=== PATIENT | female | born 1940 | race African-American/Black ===

== ENCOUNTER → 2018-09-09 | Outpatient (CLI) | payer MEDICARE, MEDICAID ==
--- NOTE | 2018-09-09 10:34 | RADIOLOGY REPORT (SQ) ---
EXAM DESCRIPTION: KNEE RIGHT 2 VIEWS COMPLETED DATE/TIME: 09/09/2018 10:25 am REASON FOR STUDY: PAIN IN RT KNEE M25.561 PAIN IN RIGHT KNEE no known injury, chronic pain COMPARISON: None. NUMBER OF VIEWS: Two views. TECHNIQUE: AP and lateral radiographic images acquired of the right knee. LIMITATIONS: None. FINDINGS: MINERALIZATION: Osteopenic, age-appropriate BONES: No acute fracture or dislocation. No worrisome bone lesions. Bony spurring is present at the patellar tendon attachment to the patella. JOINT: No effusion. SOFT TISSUES: No soft tissue swelling. No radio-opaque foreign body. Atherosclerotic arterial vascu lar calcifications OTHER: No other significant finding. IMPRESSION: No acute fracture or malalignment. Calcific tendinopathy at the patellar tendon attachment to the inferior midline patella TECHNICAL DOCUMENTATION: JOB ID: [id number] [employer]- All Rights Reserved Reading location - IP/workstation name: [email or web address]
== END ==
LOC: OD 10:07
PROVIDERS: ATTEND Internal Medicine
DX: M25.561 Pain in right knee (principal)

== ENCOUNTER → 2018-09-27 | Outpatient (CLI) | payer MEDICARE, MEDICAID ==
--- NOTE | 2018-09-27 13:55 | RADIOLOGY REPORT (SQ) ---
EXAM DESCRIPTION: CHEST PA/LATERAL COMPLETED DATE/TIME: 09/27/2018 1:43 pm REASON FOR STUDY: PRE-OP COMPARISON: None. EXAM PARAMETERS: NUMBER OF VIEWS: two views TECHNIQUE: Digital Frontal and Lateral radiographic views of the chest acquired. RADIATION DOSE: NA LIMITATIONS: none FINDINGS: LUNGS AND PLEURA: No opacities, masses or pneumothorax. No pleural effusion. MEDIASTINUM AND HILAR STRUCTURES: No masses or contour abnormalities. HEART AND VASCULAR STRUCTURES: Heart normal size. No evidence for failure. BONES: No acute findings. HARDWARE: Old sternotomy for CABG. Lower cervical fusion, lumbar fusion hardware OTHER: No other significant finding. IMPRESSION: NO SIGNIFICANT RADIOGRAPHIC FINDING IN THE CHEST. TECHNICAL DOCUMENTATION: JOB ID: [id number] [employer]- All Rights Reserved Reading location - IP/workstation name: [email or web address]
[2018-09-27 13:58] LABS: ABSOLUTE EOSINOPHILS # (AUTO) 0.1 10^3/uL (0.0-0.6); ABSOLUTE LYMPHOCYTES (AUTO) 2.4 10^3/uL (0.5-4.7); ABSOLUTE MONOCYTES (AUTO) 0.4 10^3/uL (0.1-1.4); ABSOLUTE NEUT (AUTO) 2.4 10^3/uL (1.7-8.2); BASOPHILS % (AUTO) 0.6 % (0-2); EOSINOPHILS % (AUTO) 2.3 % (0-6); HEMOGLOBIN 12.2 g/dL (12.0-15.5); LYMPHOCYTES % (AUTO) 45.2 % (13-45); MEAN CORPUSCULAR HEMOGLOBIN 27.3 pg (27.0-33.4); MEAN CORPUSCULAR VOLUME 83 fl (80-97); MONOCYTES % (AUTO) 6.7 % (3-13); PLATELET COUNT 223 10^3/uL (150-450); RED BLOOD COUNT 4.48 10^6/uL (3.72-5.28); RED CELL DISTRIBUTION WIDTH 15.6 % (11.5-14.0); SEGMENTED NEUTROPHILS % (AUTO) 45.2 % (42-78); TOTAL CELLS COUNTED % (AUTO) 100 %; WHITE BLOOD COUNT 5.4 10^3/uL (4.0-10.5)
[2018-09-27 14:26] LABS: ANION GAP 9 (5-19); BLOOD UREA NITROGEN 11 mg/dL (7-20); CALCIUM 9.9 mg/dL (8.4-10.2); CARBON DIOXIDE 28 mmol/L (22-30); CHLORIDE 104 mmol/L (98-107); GLUCOSE 120 mg/dL (75-110); POTASSIUM 4.5 mmol/L (3.6-5.0); SODIUM 140.7 mmol/L (137-145)
--- NOTE | 2018-09-27 22:58 | EKG REPORT ---
SEVERITY:- ABNORMAL ECG - SINUS RHYTHM ABERRANT COMPLEX, POSSIBLY SUPRAVENTRICULAR BIATRIAL ABNORMALITIES LOW VOLTAGE THROUGHOUT : Confirmed by: Nemo Bolivar MD 27-Sep-2018 22:58:10
== END ==
LOC: OD 13:08
PROVIDERS: ATTEND Orthopaedic Surgery
DX: Z01.810 Encounter for preprocedural cardiovascular examination (principal); Z01.812 Encounter for preprocedural laboratory examination; Z01.818 Encounter for other preprocedural examination; Z95.1 Presence of aortocoronary bypass graft
CPT/HCPCS: 36415; 71046; 80048; 85025; 93005; 93010

== ENCOUNTER 2018-10-14 10:00 | Inpatient (IN) | payer MEDICARE, MEDICAID ==
[~2018-10-14 10:00] MED LIST: BUPIVACAINE INJ/PF LIPOSOME/PF 266 MG/20 ML SDV INJ PRN; CEFAZOLIN INJ 1 GM VIAL IV PRN; IBUPROFEN 800 MG in NORMAL SALINE 250 ML IV PRN; LACTATED RINGERS 1000 ML IV PRN; LANSOPRAZOLE 15 MG TAB.RAP.DR PO PRN; LIDOCAINE 0.5% INJ-PF (5 MG/ML) 50 ML SDV SUBCUT PRN; OXYCODONE HCL SR 10 MG TABLET PO PRN; VANCOMYCIN HCL 1,000 MG in DEXTROSE 5%-WATER 250 ML IV PRN
[2018-10-14] MEDS ORDERED: LANSOPRAZOLE 15 MG TAB.RAP.DR ONE (11:41)
[2018-10-14] MEDS ORDERED: CEFAZOLIN INJ 1 GM VIAL ONE (11:42)
[2018-10-14] MEDS ORDERED: OXYCODONE HCL SR 10 MG TABLET PO ONE (11:42)
[2018-10-14] MEDS ORDERED: BUPIVACAINE HCL/DEX-WATER/PF 15 MG/2 ML AMPULE ONE (12:11)
[2018-10-14] MEDS ORDERED: PROMETHAZINE HCL INJ 25 MG/1 ML VIAL ONE (12:14)
[2018-10-14] MEDS ORDERED: LIDOCAINE 2% INJ-PF (20 MG/ML) 10 ML AMPUL ONE (12:14)
[2018-10-14] MEDS ORDERED: MIDAZOLAM 2 MG/2 ML INJ ONE (12:14)
[2018-10-14] MEDS ORDERED: FENTANYL CITRATE INJ/PF 100 MCG/2 ML AMPUL ONE (12:14)
[2018-10-14] MEDS ORDERED: ACETAMINOPHEN 1,000 MG/100 ML RTUPB IV ONE (12:15)
[2018-10-14] MEDS ORDERED: ONDANSETRON HCL INJ/PF 4 MG/2 ML SDV ONE (12:15)
[2018-10-14] MEDS ORDERED: TRANEXAMIC ACID INJ/PF 1,000 MG/10 ML SDV IV ONE ×3 (12:15→17:00)
[2018-10-14] MEDS ORDERED: EPHEDRINE SULFATE INJ 50 MG/1 ML AMPULE ONE (12:15)
[2018-10-14] MEDS ORDERED: PROPOFOL INJ 200 MG/20 ML VIAL IV ONE (12:15)
[2018-10-14] MEDS ORDERED: BACITRACIN INJ 50,000 UNIT VIAL ONE (12:18)
[2018-10-14] MEDS ORDERED: BUPIVACAINE HCL 0.5%-EPI 1:200000 INJ/PF 30 ML VIAL ONE (12:18)
[2018-10-14] MEDS ORDERED: MEPERIDINE HCL/PF INJ 25 MG/1 ML DISP.SYRIN IV PRN (14:02)
[2018-10-14] MEDS ORDERED: MORPHINE SULFATE 10 MG/ML INJ IV PRN ×5 (14:02→15:07)
[2018-10-14] MEDS ORDERED: PROMETHAZINE HCL INJ 25 MG/1 ML VIAL IV PRN ×2 (14:02)
[2018-10-14] MEDS ORDERED: DIPHENHYDRAMINE HCL 50 MG/ML VIAL IV PRN ×2 (14:02→15:07)
[2018-10-14] MEDS ORDERED: FENTANYL CITRATE INJ/PF 100 MCG/2 ML AMPUL IV PRN ×3 (14:02)
[2018-10-14] MEDS ORDERED: LABETALOL HCL INJ 20 MG/4 ML DISP.SYRIN IV ONE (14:15)
[2018-10-14] MEDS ORDERED: SUCCINYLCHOLINE CHLORIDE INJ 200 MG/10 ML VIAL ONE (14:38)
[2018-10-14] MEDS ORDERED: MAG HYDROX/AL HYDROX/SIMETH SUSP 30 ML UDCUP PO PRN (15:07)
[2018-10-14] MEDS ORDERED: ONDANSETRON 4 MG TAB.RAPDIS PO PRN (15:07)
[2018-10-14] MEDS ORDERED: RINGERS SOLUTION,LACTATED 1,000 ML IV PRN (15:07)
[2018-10-14] MEDS ORDERED: ONDANSETRON HCL INJ/PF 4 MG/2 ML SDV IV PRN (15:07)
[2018-10-14] MEDS ORDERED: ZOLPIDEM TARTRATE 5 MG TABLET PO PRN (15:07)
--- NOTE | 2018-10-14 15:17 | Operative Report ---
Operative Report DATE OF SURGERY: 10/14/18 PREOPERATIVE DIAGNOSIS: Chronic right prosthetic hip instability OPERATION: Sciatic neuro lysis. Right revision hip arthroplasty SURGEON: MOI HUBBARD ANESTHESIA: GA TISSUE REMOVED OR ALTERED: Cultures x2 to microbiology. Implants to CSS ESTIMATED BLOOD LOSS: 250 PROCEDURE: With the patient in a left lateral decubitus positioning on the operating table the right lower extremity hindquarter prepped and draped in a sterile fashion. A posterior approach the hip was taken in line with the previous surgical incision. Upon entering the hip capsule cultures sent for culture and sensitivity x2. The sciatic nerve is now identified coming out of the sciatic notch and was traced down to the gluteal sling. Is protected throughout this course for the remainder of the case. The hip was easily dislocated even during prepping of the case. Upon examination of the situation directly is notable that the 26 mm Vitallium head w as intact. There was a high wall polyethylene liner with its apex at approximately 10:00 on the face of the dial the high wall was almost completely eroded by recurrent dislocations. The femoral neck was retroverted and the cup was at best neutral. 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 In light of the stem version this was going to need to be changed to enable hip stability. The fact that a high wall liner had been used and failed may be less inclined to consider this as an option using the existing acetabular shell. Therefore decision was made to remove both the stem and the shell at this point. The existing cerclage cable was cut and removed. Using flexible osteotomes the femoral stem is loose and then removed with minimal bone loss. The acetabular liner was removed and the underlying cup was noted to be a Howmedica 56 mm implant. Its removed using acetabular nice with essentially no bone loss. The wound is irrigated. The acetabulum prepared using a series of a 56 and subsequently 57 mm hemispherical reamer. Subsequently a Jose Alfredo hemispherical revision cup was impacted into position. There is little bone proximally to secure the acetabular shell although it is quite stable without screws. Screws were subsequently placed down into the ischium and into the superior pubic ramus. The cup itself is very stable to manual testing with a Tracie clamp. A trial liner was placed and attention was now turned back to the femur. The femur was prepared for a Jose Alfredo modular yazdanism stem using conical reamers until a 18 mm reamer is seated. Subsequently the base for the modular revision stem is impacted into position. The proximal femur was prepared and a 25 mm standard body is trial was placed onto the stem. The hip was reducible with a -4x36 mm chrome cobalt head and there seems to be excellent both anterior and posterior stability. The hip is dislocated. Trial implants were removed. The final proximal body is impacted onto the trunnion and secured with a torque wrench. The 36 mm chrome cobalt head -4 neck is impacted onto the trunnion. A 36 mm flat cross-link polyethylene liner was impacted into the acetabular shell. At this point the hip was reduced. A cerclage cables placed around the greater trochanter. The wound was then irrigated and closed in layers interrupted Vicryl followed by s taples. A sterile compressive dressing and abduction pillow were applied and the patient's return to the PACU in satisfactory condition.
--- NOTE | 2018-10-14 16:20 | RADIOLOGY REPORT (SQ) ---
EXAM DESCRIPTION: PELVIS AP COMPLETED DATE/TIME: 10/14/2018 4:10 pm REASON FOR STUDY: Post Op Long Cassette in PACU Z96.649 PRESENCE OF UNSPECIFIED ARTIFICIAL HIP JOSÉ LUIS NT COMPARISON: None. NUMBER OF VIEWS: One view TECHNIQUE: AP Pelvis LIMITATIONS: None. FINDINGS: Postoperative images show or a right hip arthroplasty in good position. Cannot entirely e xclude a fracture seen en face extending inferior from the tip of the medullary component. IMPRESSION: Right hip arthroplasty. Findings as described. COMMENT: Pelvic fractures are often occult on plain radiographs. If strong clinical suspicion for f racture, recommend CT or MR. TECHNICAL DOCUMENTATION: JOB ID: [id number] [employer]- All Rights Reserved Reading location - IP/workstation name: [email or web address]
[2018-10-14] MEDS ORDERED: INSULIN LISPRO 100 UNIT/ML 3 ML VIAL SUBCUT PRN (16:30)
[2018-10-14] MEDS ORDERED: DEXTROSE 50%-WATER SYRINGE 12.5 GM/25 ML DOSE IV PRN (16:30)
[2018-10-14] MEDS ORDERED: DEXTROSE 40% GEL 15 GM TUBE X 2 PO PRN (16:30)
[2018-10-14] MEDS ORDERED: DEXTROSE 40% GEL 15 GM TUBE PO PRN (16:30)
[2018-10-14] MEDS ORDERED: DEXTROSE 50%-WATER SYRINGE 25 GM/50 ML DOSE IV PRN (16:30)
[2018-10-14] MEDS ORDERED: GLUCAGON,HUMAN RECOMB 1 MG INJ IM PRN (16:30)
[2018-10-14] MEDS ORDERED: (PENDING PHARMACY ID) (Metformin Hcl [Metformin Hcl] 1,000 MG) PO SCH (18:00)
[2018-10-14] MEDS: METOPROLOL SUCCINATE 50 MG TAB.SR.24H PO SCH (18:53)
[2018-10-14] MEDS: METFORMIN HCL 500 MG TABLET PO SCH (19:34)
[2018-10-14] MEDS: SENNOSIDES/DOCUSATE 8.6-50 MG 1 EACH TABLET PO SCH (19:34)
[2018-10-14] MEDS: IBUPROFEN 800 MG in NORMAL SALINE 250 ML IV SCH (21:45)
[2018-10-14] MEDS: OXYCODONE HCL SR 10 MG TABLET PO SCH (21:46)
[2018-10-14] MEDS: BIMATOPROST 0.01% OPH SOLN 2.5 ML/BOTTLE OU SCH (21:49)
[2018-10-15] MEDS ORDERED: VANCOMYCIN HCL 1,000 MG in DEXTROSE 5%-WATER 250 ML IV ONE (03:00)
[2018-10-15] MEDS: IBUPROFEN 800 MG in NORMAL SALINE 250 ML IV SCH ×3 (05:30→21:22)
--- NOTE | 2018-10-15 07:20 | PDOC PROGRESS REPORT ---
Subjective Progress Note for:: 10/15/18 Reason For Visit: RIGHT PROSTHETIC HIP INSTABILITY 77-year-old black female postop day 1 status post right hip revision arthroplasty for prosthetic instability. No events last night. Physical Exam Vital Signs: Temp Pulse Resp BP Pulse Ox 36.8 C 83 15 114/65 97 10/14/18 23:00 10/14/18 23:00 10/14/18 23:00 10/14/18 23:00 10/14/18 23:00 Intake & Output 10/14/18 10/15/18 10/16/18 06:59 06:59 06:59 Intake Total 6050 Output Total 4950 Balance 1100 Weight 72.1 kg Physical Exam: Elderly black female lying in a hospital bed in no acute distress. General appearance: PRESENT: no acute distress Head exam: PRESENT: normocephalic Respiratory exam: PRESENT: unlabored Cardiovascular exam: PRESENT: RRR Pulses: PRESENT: +1 pedal pulses bilateral Vascular exam: PRESENT: normal capillary refill GI/Abdominal exam: PRESENT: soft Rectal exam: PRESENT: deferred Extremities exam: PRESENT: other - Right hip dressing with some drainage. This will be changed by nursing. Leg lengths are equal. Distal neurovascular examination is intact. Neurological exam: PRESENT: alert, awake, oriented to person, oriented to place, oriented to time, oriented to situation. ABSENT: motor sensory deficit Psychiatric exam: PRESENT: appropriate affect, normal mood. ABSENT: homicidal i deation, suicidal ideation Skin exam: PRESENT: dry, intact, warm. ABSENT: cyanosis, rash Results Laboratory Results: 10/14/18 12:18 Blood Type O POSITIVE Antibody Screen NEGATIVE Impressions: Pelvis X-Ray 10/14/18 15:09 IMPRESSION: Right hip arthroplasty. Findings as described. Status: Imported from PACS Assessment & Plan - Diagnosis (1) Dislocation of hip joint prosthesis Qualifiers: Encounter type: initial encounter Qualified Code(s): T84.029A - Dislocation of unspecified internal joint prosthesis, initial encounter; Z96.649 - Presence of unspecified artificial hip joint Is this a current diagnosis for this admission?: Yes Plan: Patient to be mobilized with physical therapy and weightbearing as tolerated basis - Time Time Spent with patient: 15-24 minutes Anticipated discharge: SNF Within: when bed available
[2018-10-15 07:29] LABS: HEMATOCRIT 24.6 % (36.0-47.0); MEAN CORPUSCULAR HEMOGLOBIN 27.4 pg (27.0-33.4); MEAN CORPUSCULAR HGB CONC 32.7 g/dL (32.0-36.0); MEAN CORPUSCULAR VOLUME 84 fl (80-97); PLATELET COUNT 156 10^3/uL (150-450); RED BLOOD COUNT 2.93 10^6/uL (3.72-5.28); RED CELL DISTRIBUTION WIDTH 15.6 % (11.5-14.0); WHITE BLOOD COUNT 11.2 10^3/uL (4.0-10.5)
[2018-10-15 07:51] LABS: ANION GAP 7 (5-19); BLOOD UREA NITROGEN 18 mg/dL (7-20); CALCIUM 8.4 mg/dL (8.4-10.2); CARBON DIOXIDE 24 mmol/L (22-30); CHLORIDE 106 mmol/L (98-107); GLUCOSE 182 mg/dL (75-110); POTASSIUM 4.7 mmol/L (3.6-5.0); SODIUM 137.1 mmol/L (137-145)
[2018-10-15] MEDS: LISINOPRIL 10 MG TABLET PO SCH (09:34)
[2018-10-15] MEDS: ASPIRIN 325 MG TABLET PO SCH (09:39)
[2018-10-15] MEDS: METOPROLOL SUCCINATE 50 MG TAB.SR.24H PO SCH ×2 (09:40→17:25)
[2018-10-15] MEDS: ATORVASTATIN CALCIUM 40 MG TABLET PO SCH (09:40)
[2018-10-15] MEDS: SITAGLIPTIN PHOSPHATE 50 MG TABLET PO SCH (09:40)
[2018-10-15] MEDS: METFORMIN HCL 500 MG TABLET PO SCH ×2 (09:40→16:30)
[2018-10-15] MEDS: SENNOSIDES/DOCUSATE 8.6-50 MG 1 EACH TABLET PO SCH ×2 (09:40→18:11)
[2018-10-15] MEDS: PRENATAL VITAMIN W DHA CAPSULE PO SCH (11:18)
[2018-10-15] MEDS: OXYCODONE HCL SR 10 MG TABLET PO SCH ×2 (11:19→21:23)
[2018-10-15] MEDS: OXYCODONE HCL IR 5 MG TABLET PO PRN (16:30)
[2018-10-15] MEDS: LANSOPRAZOLE 30 MG TAB.RAP.DR PO SCH (21:18)
[2018-10-15] MEDS: BIMATOPROST 0.01% OPH SOLN 2.5 ML/BOTTLE OU SCH (21:25)
[2018-10-16] MEDS: LANSOPRAZOLE 30 MG TAB.RAP.DR PO SCH (05:32)
[2018-10-16] MEDS: IBUPROFEN 800 MG in NORMAL SALINE 250 ML IV SCH ×2 (05:32→14:28)
[2018-10-16 07:11] LABS: HEMATOCRIT 20.4 % (36.0-47.0); MEAN CORPUSCULAR HEMOGLOBIN 27.8 pg (27.0-33.4); MEAN CORPUSCULAR HGB CONC 33.6 g/dL (32.0-36.0); MEAN CORPUSCULAR VOLUME 83 fl (80-97); PLATELET COUNT 129 10^3/uL (150-450); RED BLOOD COUNT 2.47 10^6/uL (3.72-5.28); RED CELL DISTRIBUTION WIDTH 15.5 % (11.5-14.0); WHITE BLOOD COUNT 8.6 10^3/uL (4.0-10.5)
[2018-10-16 07:27] LABS: HEMOGLOBIN 6.9 g/dL (12.0-15.5)
[2018-10-16] MEDS: METOPROLOL SUCCINATE 50 MG TAB.SR.24H PO SCH ×2 (09:00→17:28)
[2018-10-16] MEDS: LISINOPRIL 10 MG TABLET PO SCH (09:00)
[2018-10-16] MEDS: ATORVASTATIN CALCIUM 40 MG TABLET PO SCH (09:07)
[2018-10-16] MEDS: ASPIRIN 325 MG TABLET PO SCH (09:07)
[2018-10-16] MEDS: PRENATAL VITAMIN W DHA CAPSULE PO SCH (09:07)
[2018-10-16] MEDS: METFORMIN HCL 500 MG TABLET PO SCH ×2 (09:07→17:30)
[2018-10-16] MEDS: SITAGLIPTIN PHOSPHATE 50 MG TABLET PO SCH (09:07)
[2018-10-16] MEDS: OXYCODONE HCL SR 10 MG TABLET PO SCH (09:08)
[2018-10-16] MEDS: SENNOSIDES/DOCUSATE 8.6-50 MG 1 EACH TABLET PO SCH ×2 (09:08→17:30)
[2018-10-16] MEDS: BIMATOPROST 0.01% OPH SOLN 2.5 ML/BOTTLE OU SCH (23:04)
[2018-10-17] MEDS: LANSOPRAZOLE 30 MG TAB.RAP.DR PO SCH (06:14)
[2018-10-17] MEDS: ACETAMINOPHEN 325 MG TABLET PO PRN (06:40)
--- NOTE | 2018-10-17 06:59 | PDOC PROGRESS REPORT ---
Subjective Progress Note for:: 10/17/18 Reason For Visit: RIGHT PROSTHETIC HIP INSTABILITY 77-year-old black female now postop day 3 status post right hip revision arthroplasty for prosthetic instability. Patient with no complaints today. Question this morning is "when can I go home?" Low-grade fever last night to 38 .2 C. Posttransfusion hematocrit pending. Physical Exam Vital Signs: Temp Pulse Resp BP Pulse Ox 38.2 C H 102 H 16 126/63 H 98 10/17/18 03:17 10/17/18 03:17 10/17/18 03:17 10/17/18 03:17 10/17/18 03:17 Intake & Output 10/15/18 10/16/18 10/17/18 06:59 06:59 06:59 Intake Total 6050 2472 1945 Output Total 4950 Balance 1100 2472 1945 Weight 72.1 kg 84.7 kg 87 kg General appearance: PRESENT: no acute distress Head exam: PRESENT: normocephalic Respiratory exam: PRESENT: unlabored Cardiovascular exam: PRESENT: RRR Pulses: PRESENT: +1 pedal pulses bilateral Vascular exam: PRESENT: normal capillary refill GI/Abdominal exam: PRESENT: soft Rectal exam: PRESENT: deferred Extremities exam: PRESENT: other - Right hip dressing clean dry and intact. Leg lengths are equal. Distal neurovascular examination is intact. Neurological exam: PRESENT: alert, awake, oriented to person, oriented to place, oriented to time, oriented to situation. ABSENT: motor sensory deficit Psychiatric exam: PRESENT: appropriate affect, normal mood. ABSENT: homicidal ideation, suicidal ideation Skin exam: PRESENT: dry, intact, warm. ABSENT: cyanosis, rash Results Laboratory Results: 10/16/18 06:18 10/15/18 06:14 10/14/18 10/16/18 12:18 06:18 WBC 8.6 RBC 2.47 L Hgb 6.9 L Hct 20.4 L MCV 83 MCH 27.8 MCHC 33.6 RDW 15.5 H Plt Count 129 L Blood Type O POSITIVE Antibody Screen NEGATIVE Impressions: Pelvis X-Ray 10/14/18 15:09 IMPRESSION: Right hip arthroplasty. Findings as described. Status: Imported from PACS Assessment & Plan - Diagnosis (1) Dislocation of hip joint prosthesis Qualifiers: Encounter type: initial encounter Qualified Code(s): T84.029A - Dislocation of unspecified internal joint prosthesis, initial encounter; Z96.649 - Presence of unspecified artificial hip joint Is this a current diagnosis for this admission?: Yes Plan: Patient can continue to be mobilized with physical therapy and weightbearing as tolerated basis. Continue to observe for low-grade fever. Anticipate potential discharge home tomorrow with home health services and DME. (2) Postoperative anemia due to acute blood loss Is this a current diagnosis for this admission?: Yes Plan: Patient had hematocrit yesterday of 20%. She received 2 units of packed red blood cells. Posttransfusion hematocrits pending. - Time Time Spent with patient: 15-24 minutes Anticipated discharge: Home with Homehealth Within: within 24 hours
[2018-10-17 08:49] LABS: HEMATOCRIT 26.1 % (36.0-47.0); HEMOGLOBIN 8.7 g/dL (12.0-15.5); MEAN CORPUSCULAR HEMOGLOBIN 28.2 pg (27.0-33.4); MEAN CORPUSCULAR HGB CONC 33.3 g/dL (32.0-36.0); MEAN CORPUSCULAR VOLUME 85 fl (80-97); PLATELET COUNT 134 10^3/uL (150-450); RED BLOOD COUNT 3.09 10^6/uL (3.72-5.28); RED CELL DISTRIBUTION WIDTH 15.5 % (11.5-14.0); WHITE BLOOD COUNT 9.8 10^3/uL (4.0-10.5)
[2018-10-17] MEDS: METFORMIN HCL 500 MG TABLET PO SCH ×2 (09:01→17:26)
[2018-10-17] MEDS: SITAGLIPTIN PHOSPHATE 50 MG TABLET PO SCH (09:01)
[2018-10-17] MEDS: ATORVASTATIN CALCIUM 40 MG TABLET PO SCH (09:01)
[2018-10-17] MEDS: ASPIRIN 325 MG TABLET PO SCH (09:01)
[2018-10-17] MEDS: LISINOPRIL 10 MG TABLET PO SCH (09:02)
[2018-10-17] MEDS: METOPROLOL SUCCINATE 50 MG TAB.SR.24H PO SCH ×2 (09:02→17:26)
[2018-10-17] MEDS: SENNOSIDES/DOCUSATE 8.6-50 MG 1 EACH TABLET PO SCH ×2 (09:02→17:26)
[2018-10-17] MEDS: PRENATAL VITAMIN W DHA CAPSULE PO SCH (14:03)
[2018-10-17] MEDS ORDERED: MAGNESIUM HYDROXIDE SUSP 30 ML UDCUP ONE (17:23)
[2018-10-17] MEDS: MAGNESIUM HYDROXIDE SUSP 30 ML UDCUP PO PRN (18:51)
[2018-10-17] MEDS: BIMATOPROST 0.01% OPH SOLN 2.5 ML/BOTTLE OU SCH (22:37)
[2018-10-18] MEDS: ACETAMINOPHEN 325 MG TABLET PO PRN (01:12)
[2018-10-18] MEDS: OXYCODONE HCL IR 5 MG TABLET PO PRN (01:12)
[2018-10-18] MEDS: LANSOPRAZOLE 30 MG TAB.RAP.DR PO SCH (05:55)
--- NOTE | 2018-10-18 08:47 | PDOC PROGRESS REPORT ---
Subjective Progress Note for:: 10/18/18 Reason For Visit: RIGHT PROSTHETIC HIP INSTABILITY 77-year-old black female status post right hip revision arthroplasty, postop day 4. Patient with limited if any participation with physical therapy yesterday. T-max 38.1 last night. Hematocrit is 26.1%. Intraoperative cultures are no growth so far. Physical Exam Vital Signs: Temp Pulse Resp BP Pulse Ox 37.2 C 82 17 111/50 L 99 10/18/18 07:41 10/18/18 07:41 10/18/18 07:41 10/18/18 07:41 10/18/18 07:41 Intake & Output 10/17/18 10/18/18 10/19/18 06:59 06:59 06:59 Intake Total 1944 740 Balance 19440 Weight 87 kg 80.8 kg General appearance: PRESENT: no acute distress Head exam: PRESENT: normocephalic Respiratory exam: PRESENT: unlabored Cardiovascular exam: PRESENT: RRR Pulses: PRESENT: +1 pedal pulses bilateral Vascular exam: PRESENT: normal capillary refill Extremities exam: PRESENT: other - Right hip dressing clean dry and intact. Leg lengths are equal. Distal neurovascular examination is intact. Neurological exam: PRESENT: alert, awake, oriented to person, oriented to place, oriented to time, oriented to situation. ABSENT: motor sensory deficit Psychiatric exam: PRESENT: appropriate affect, normal mood. ABSENT: homicidal ideation, suicidal ideation Skin exam: PRESENT: dry, intact, warm. ABSENT: cyanosis, rash Results Laboratory Results: 10/17/18 07:30 10/15/18 06:14 10/17/18 07:30 WBC 9.8 RBC 3.09 L Hgb 8.7 L Hct 26.1 L MCV 85 MCH 28.2 MCHC 33.3 RDW 15.5 H Plt Count 134 L 10/14/18 13:30 Hip - Right Gram Stain - Final 10/14/18 13:30 Hip - Right Wound Culture - Final NO AEROBIC OR ANAEROBIC ORGANISMS RECOVERED 10/14/18 13:30 Hip - Right Gram Stain - Final 10/14/18 13:30 Hip - Right Wound Culture - Final NO AEROBIC OR ANAEROBIC ORGANISMS RECOVERED Impressions: Pelvis X-Ray 10/14/18 15:09 IMPRESSION: Right hip arthroplasty. Findings as described. Status: Imported from PACS Assessment & Plan - Diagnosis (1) Dislocation of hip joint prosthesis Qualifiers: Encounter type: initial encounter Qualified Code(s): T84.029A - Dislocation of unspecified internal joint prosthesis, initial encounter; Z96.649 - Presence of unspecified artificial hip joint Is this a current diagnosis for this admission?: Yes Plan: That is post revision arthroplasty. Mobilize with physical therapy and weightbearing as tolerated basis. At this point the patient does not have the functional capacity to consider discharge home. I that she is going to have to increase her efforts at physical therapy will be resigned to a long-term facility placement. (2) Postoperative anemia due to acute blood loss Is this a current diagnosis for this admission?: Yes Plan: Stable - Time Time Spent with patient: 15-24 minutes Anticipated discharge: SNF Within: when bed available
[2018-10-18] MEDS: METOPROLOL SUCCINATE 50 MG TAB.SR.24H PO SCH ×2 (09:34→18:11)
[2018-10-18] MEDS: PRENATAL VITAMIN W DHA CAPSULE PO SCH (09:34)
[2018-10-18] MEDS: SITAGLIPTIN PHOSPHATE 50 MG TABLET PO SCH (09:34)
[2018-10-18] MEDS: SENNOSIDES/DOCUSATE 8.6-50 MG 1 EACH TABLET PO SCH ×2 (09:34→18:10)
[2018-10-18] MEDS: METFORMIN HCL 500 MG TABLET PO SCH ×2 (09:34→18:10)
[2018-10-18] MEDS: LISINOPRIL 10 MG TABLET PO SCH (09:34)
[2018-10-18] MEDS: ATORVASTATIN CALCIUM 40 MG TABLET PO SCH (09:34)
[2018-10-18] MEDS: ASPIRIN 325 MG TABLET PO SCH (09:34)
[2018-10-18] MEDS: MAGNESIUM HYDROXIDE SUSP 30 ML UDCUP PO PRN (20:53)
[2018-10-18] MEDS: BIMATOPROST 0.01% OPH SOLN 2.5 ML/BOTTLE OU SCH (22:42)
[2018-10-19] MEDS: OXYCODONE HCL IR 5 MG TABLET PO PRN ×2 (01:43→23:14)
[2018-10-19] MEDS: LANSOPRAZOLE 30 MG TAB.RAP.DR PO SCH (06:56)
[2018-10-19] MEDS: ASPIRIN 325 MG TABLET PO SCH (09:13)
[2018-10-19] MEDS: ATORVASTATIN CALCIUM 40 MG TABLET PO SCH (09:13)
[2018-10-19] MEDS: METOPROLOL SUCCINATE 50 MG TAB.SR.24H PO SCH ×2 (09:13→17:17)
[2018-10-19] MEDS: METFORMIN HCL 500 MG TABLET PO SCH ×2 (09:13→17:17)
[2018-10-19] MEDS: SENNOSIDES/DOCUSATE 8.6-50 MG 1 EACH TABLET PO SCH ×2 (09:13→17:17)
[2018-10-19] MEDS: LISINOPRIL 10 MG TABLET PO SCH (09:13)
[2018-10-19] MEDS: SITAGLIPTIN PHOSPHATE 50 MG TABLET PO SCH (09:13)
[2018-10-19] MEDS: PRENATAL VITAMIN W DHA CAPSULE PO SCH (09:14)
[2018-10-19] MEDS: BIMATOPROST 0.01% OPH SOLN 2.5 ML/BOTTLE OU SCH (22:11)
[2018-10-20] MEDS: LANSOPRAZOLE 30 MG TAB.RAP.DR PO SCH (06:47)
[2018-10-20] MEDS: ATORVASTATIN CALCIUM 40 MG TABLET PO SCH (08:44)
[2018-10-20] MEDS: METOPROLOL SUCCINATE 50 MG TAB.SR.24H PO SCH ×2 (08:44→17:43)
[2018-10-20] MEDS: LISINOPRIL 10 MG TABLET PO SCH (08:44)
[2018-10-20] MEDS: PRENATAL VITAMIN W DHA CAPSULE PO SCH (08:45)
[2018-10-20] MEDS: SITAGLIPTIN PHOSPHATE 50 MG TABLET PO SCH (08:45)
[2018-10-20] MEDS: SENNOSIDES/DOCUSATE 8.6-50 MG 1 EACH TABLET PO SCH ×2 (08:45→17:44)
[2018-10-20] MEDS: METFORMIN HCL 500 MG TABLET PO SCH ×2 (08:45→17:43)
[2018-10-20] MEDS: ASPIRIN 325 MG TABLET PO SCH (08:45)
--- NOTE | 2018-10-20 15:05 | PDOC PROGRESS REPORT ---
Subjective Progress Note for:: 10/19/18 Subjective:: Patient wanting to go home. Has participated better with therapy. No issues overnight Reason For Visit: RIGHT PROSTHETIC HIP INSTABILITY Physical Exam Vital Signs: Temp Pulse Resp BP Pulse Ox 37.9 C 86 16 118/56 L 99 10/18/18 23:04 10/18/18 23:04 10/18/18 23:04 10/18/18 23:04 10/18/18 23:04 Intake & Output 10/18/18 10/19/18 10/20/18 06:59 06:59 06:59 Intake Total 740 2980 Balance 740 2980 Weight 80.8 kg 80.8 kg Adult Front & Back Image: 1 - Dressing is dry clean and intact. Limb lengths are grossly equal. Neurovascular intact distally Results Laboratory Results: 10/17/18 07:30 10/15/18 06:14 Impressions: Pelvis X-Ray 10/14/18 15:09 IMPRESSION: Right hip arthroplasty. Findings as described. Assessment & Plan - Plan Summary Plan Summary: 77-year-old female status post revision right hip. Continue physical therapy. Likely will be discharged on Sunday.
--- NOTE | 2018-10-20 15:08 | PDOC PROGRESS REPORT ---
Subjective Progress Note for:: 10/20/18 Subjective:: Patient is ambulating very well and walked 100 feet. No issues overnight Reason For Visit: RIGHT PROSTHETIC HIP INSTABILITY Physical Exam Vital Signs: Temp Pulse Resp BP Pulse Ox 36.9 C 82 18 120/44 L 100 10/20/18 11:19 10/20/18 11:19 10/20/18 11:19 10/20/18 11:19 10/20/18 11:19 Intake & Output 10/19/18 10/20/18 10/21/18 06:59 06:59 06:59 Intake Total 2980 1260 Balance 2980 1260 Weight 80.8 kg 80.8 kg Adult Front & Back Image: 1 - Limb lengths are grossly equal. Dressing dry clean and intact. Neurovascular intact distally. Results Laboratory Results: 10/17/18 07:30 10/15/18 06:14 Impressions: Pelvis X-Ray 10/14/18 15:09 IMPRESSION: Right hip arthroplasty. Findings as described. Assessment & Plan - Plan Summary Plan Summary: 77-year-old female status post revision right hip. Ambulated 100 feet. She ambulated 100 feet plus today she will likely go home tomorrow. Continue pain control and DVT prophylaxis.
[2018-10-20] MEDS: OXYCODONE HCL IR 5 MG TABLET PO PRN (16:29)
[2018-10-20] MEDS: BIMATOPROST 0.01% OPH SOLN 2.5 ML/BOTTLE OU SCH (21:21)
[2018-10-21] MEDS: LANSOPRAZOLE 30 MG TAB.RAP.DR PO SCH (05:06)
[2018-10-21 08:35] VITALS: BP 113/62
--- NOTE | 2018-10-21 08:59 | PDOC DISCHARGE SUMMARY ---
General - Admit/Disc Date/PCP Admission Date/Primary Care Provider: 10/14/18 11:24 YORDY PISANO MD Discharge Date: 10/21/18 - Discharge Diagnosis (1) Dislocation of hip joint prosthesis Is this a current diagnosis for this admission?: Yes (2) Postoperative anemia due to acute blood loss Is this a current diagnosis for this admission?: Yes - Additional Information Resuscitation Status: Full Code Discharge Diet: As Tolerated Home Medications: Atorvastatin Calcium [Lipitor 40 mg Tablet] 40 mg PO DAILY 10/10/18 Bimatoprost [Lumigan 0.01% Oph Soln 2.5 ml/Bottle] 1 drop OU QHS 10/10/18 Lisinopril [Prinivil 40 mg Tablet] 40 mg PO DAILY 10/10/18 Metformin HCl 1,000 mg PO BID 10/10/18 Metoprolol Succinate [Toprol Xl] 50 mg PO BID 10/10/18 Sitagliptin Phosphate [Januvia] 100 mg PO DAILY 10/10/18 Tramadol HCl [Ultram] 50 mg PO Q8 10/10/18 Aspirin [Aspirin 325 mg Tablet] 325 mg PO DAILY 10/14/18 Venlafaxine HCl [Venlafaxine HCl ER] 150 mg PO DAILY 10/14/18 History of Present Illness History of Present Illness: MALIK DOE is a 77 year old female Patient is a 77-year-old black female status post right hip arthroplasty in the distant past in [facility] who presents with recurrent dislocation. The patient is admitted for a revision arthroplasty to address the prosthetic instability Hospital Course Hospital Course: Patient is admitted through the operating where she undergoes uncomplicated right hip revision arthroplasty. She is returned to floor in satisfactory condition. She initially demonstrates an anemia and this is treated with 2 units of packed red blood cells. Her participation with physical therapy is less than robust but eventually she is ambulating 100 feet. Physical Exam Vital Signs: Temp Pulse Resp BP Pulse Ox 37.6 C 85 19 113/62 98 10/21/18 08:31 10/21/18 08:31 10/21/18 08:31 10/21/18 08:31 10/21/18 08:31 Intake & Output 10/20/18 10/21/18 10/22/18 06:59 06:59 06:59 Intake Total 1260 1520 Balance 1260 1520 Weight 80.8 kg 68.9 kg General appearance: PRESENT: no acute distress Head exam: PRESENT: normocephalic Respiratory exam: PRESENT: unlabored Cardiovascular exam: PRESENT: RRR Pulses: PRESENT: +1 pedal pulses bilateral Vascular exam: PRESENT: normal capillary refill GI/Abdominal exam: PRESENT: soft Rectal exam: PRESENT: deferred Extremities exam: PRESENT: other - Right hip dressing remains clean dry and intact. Leg lengths are equal. Distal neurovascular examination is intact. Neurological exam: PRESENT: alert, awake, oriented to person, oriented to place, oriented to time, oriented to situation. ABSENT: motor sensory deficit Psychiatric exam: PRESENT: appropriate affect, normal mood. ABSENT: homicidal ideation, suicidal ideation Skin exam: PRESENT: dry, intact, warm. ABSENT: cyanosis, rash Results Laboratory Results: 10/17/18 07:30 10/15/18 06:14 Impressions: Pelvis X-Ray 10/14/18 15:09 IMPRESSION: Right hip arthroplasty. Findings as described. Status: Imported from PACS Qualifiers - * PATIENT BEING DISCHARGED WITH ANY OF THE FOLLOWING DIAGNOSIS: No VTE patient discharged on overlapping Therapy?: Yes Plan Discharge Plan: Plan for discharge home with DME and home health services. Follow-up with Dr. Quinones and [facility] for surgery in 2 weeks for staple removal. Time Spent: Less than 30 Minutes
[2018-10-21] MEDS: SITAGLIPTIN PHOSPHATE 50 MG TABLET PO SCH (09:28)
[2018-10-21] MEDS: ATORVASTATIN CALCIUM 40 MG TABLET PO SCH (09:28)
[2018-10-21] MEDS: ASPIRIN 325 MG TABLET PO SCH (09:28)
[2018-10-21] MEDS: LISINOPRIL 10 MG TABLET PO SCH (09:28)
[2018-10-21] MEDS: PRENATAL VITAMIN W DHA CAPSULE PO SCH (09:28)
[2018-10-21] MEDS: METOPROLOL SUCCINATE 50 MG TAB.SR.24H PO SCH (09:28)
[2018-10-21] MEDS: SENNOSIDES/DOCUSATE 8.6-50 MG 1 EACH TABLET PO SCH (09:28)
[2018-10-21] MEDS: METFORMIN HCL 500 MG TABLET PO SCH (09:28)
== END 2018-10-21 09:38 | disposition home health service (06) | DRG 467 ==
LOC: INOR 11:24 → 5 17:02
PROVIDERS: ADMIT Orthopaedic Surgery; ATTEND Orthopaedic Surgery
PROC: 0SP90JZ Removal of Synthetic Substitute from Right Hip Joint, Open Approach (ICD-10-PCS; 2018-10-14)
PROC: 0SR90JA Replacement of Right Hip Joint with Synthetic Substitute, Uncemented, Open Approach (ICD-10-PCS; principal; 2018-10-14 13:30)
PROC: 30233N1 Transfusion of Nonautologous Red Blood Cells into Peripheral Vein, Percutaneous Approach (ICD-10-PCS; 2018-10-16)
DX: T84.020A Dislocation of internal right hip prosthesis, initial encounter (principal); D62 Acute posthemorrhagic anemia; M25.351 Other instability, right hip; E78.00 Pure hypercholesterolemia, unspecified; I10 Essential (primary) hypertension; M19.90 Unspecified osteoarthritis, unspecified site; Z79.899 Other long term (current) drug therapy; Z96.641 Presence of right artificial hip joint; I25.2 Old myocardial infarction; Z87.891 Personal history of nicotine dependence
CPT/HCPCS: 01215; 36415; 36430; 72170; 80048; 82962; 85027; 86850; 86900; 86901; 86920; 87070; 87075; 87205; 88304; 94799; C1713; C1776; J0131; J0330; J0690; J1741; J1815; J2250; J2405; J2550; J2704; J3010; J3370; J3490; J7050; J7060; J7120; P9016

== ENCOUNTER 2019-06-03 10:04 | Day surgery (SDC) | payer MEDICARE, MEDICAID ==
[~2019-06-03 10:04] MED LIST changes: +BUPIVACAINE HCL 0.75% INJ/PF (7.5 MG/1 ML) 10 ML SDV OD PRN; -BUPIVACAINE INJ/PF LIPOSOME/PF 266 MG/20 ML SDV INJ PRN; -CEFAZOLIN INJ 1 GM VIAL IV PRN; +CHONDR SU A NA/HYALUR INTRAOC KIT (SURGICARE) ONE; +EPINEPHRINE INJ/PF 1 MG/1 ML AMPULE ONE; -IBUPROFEN 800 MG in NORMAL SALINE 250 ML IV PRN; +KETOROLAC TROMETHAMINE 0.45% 4 DROP/0.4 ML DROPERETTE OD PRN; -LACTATED RINGERS 1000 ML IV PRN; -LANSOPRAZOLE 15 MG TAB.RAP.DR PO PRN; -LIDOCAINE 0.5% INJ-PF (5 MG/ML) 50 ML SDV SUBCUT PRN; +LIDOCAINE 1% INJ-PF (10 MG/ML) 30 ML SDV ONE; +LIDOCAINE 4% INJ/PF (40 MG/ML) 5 ML AMPUL OD PRN; -OXYCODONE HCL SR 10 MG TABLET PO PRN; -VANCOMYCIN HCL 1,000 MG in DEXTROSE 5%-WATER 250 ML IV PRN
[2019-06-03] MEDS ORDERED: HYALURONATE SODIUM SYRINGE 0.55 ML ONE (11:43)
[2019-06-03] MEDS ORDERED: TRYPAN BLUE 0.06 % OPH SOLN 0.5 ML DISP.SYRIN ONE (12:03)
[2019-06-03] MEDS: TROPICAMIDE 1% OPH SOLN 3 ML OD PRN ×3 (12:08→12:28)
[2019-06-03] MEDS: TETRACAINE HCL 0.5% OPH SOLN 4 ML OD PRN ×2 (12:08→12:29)
[2019-06-03] MEDS: CYCLOPENTOLATE 0.2%/PHENYLEPHRINE 1% OPH SOLN 2 ML OD PRN ×3 (12:09→12:28)
[2019-06-03] MEDS: BESIFLOXACIN HCL 0.6% OPH SUSP 5 ML BOTTLE OD PRN ×4 (12:09→13:26)
[2019-06-03] MEDS ORDERED: FENTANYL CITRATE INJ/PF 100 MCG/2 ML AMPUL ONE (12:56)
[2019-06-03] MEDS ORDERED: MIDAZOLAM 2 MG/2 ML INJ ONE (12:56)
[2019-06-03] MEDS: DORZOLAMIDE HCL 2%/TIMOLOL MALEAT 0.5% OPH SOLN 10 ML OD PRN ×2 (13:26)
--- NOTE | 2019-06-03 14:22 | Operative Report ---
Operative Report-[facility] Operative Report: DATE OF SURGERY: 06/03/2019 PREOPERATIVE DIAGNOSIS: 1. CATARACT, RIGHT EYE 2. PRIMARY OPEN ANGLE GLAUCOMA, RIGHT EYE POSTOPERATIVE DIAGNOSIS: 1. CATARACT, RIGHT EYE 2. PRIMARY OPEN ANGLE GLAUCOMA, RIGHT EYE PROCEDURE PERFORMED: PHACOEMULSIFICATION WITH POSTERIOR CHAMBER INTRAOCULAR LENS WITH INSERTION OF ISTENT INJECTION, RIGHT EYE Intraocular Lens Model: SN 60 WF 21.5 Total Phaco Time: 15.42 CDE SURGEON: RAMONA ROCHA MD ANESTHESIA: Topical with MAC and intraocular lidocaine INDICATIONS FOR SURGERY: Difficulty driving at night INDICATION FOR ISTENT: To reduce the dependence on glaucoma medications PROCEDURE: The patient was brought to the operating room and placed on operative table. Following Tetracaine drops, topical anesthesia was administered. This consisted of instrument wipes pledgets soaked in a solution of 4% Xylocaine mixed with a 0.75% Marcaine in a 1:2 ratio. A 2 x 1 cm pledget was placed in the superior fornix. A 11 cm pledget was placed in the inferior fornix. The eye was patched shut for 5 minutes. The patch was removed. The eye was sterilely prepped and draped in the usual manner. Lid speculum was placed in the eye. The pledgets were removed and a 4-0 black silk suture was placed around the superior and inferior rectus muscle to use as traction. Conjunctival peritomy was made at the 10 o'clock position. Hemostasis was obtained with bipolar cautery. A posterior limbal groove was created using a crescent knife and dissection anteriorly to wards the cornea. A sharp point blade was used to create a paracentesis site at the 2 o'clock position. A 2.4 mm keratome was used to enter the anterior chamber through the group. Viscoelastic was injected into the anterior chamber. Anterior capsulotomy was performed using Utrata forceps in a capsulorrhexis fashion. Hydrodissection and hydrodelineation was performed. Phacoemulsification was performed in a divide and conquer technique. Following this, the I/A unit was used to remove residual cortex. Viscoelastic was injected into the capsular bag. Intraocular lens were placed in the capsular bag. Following insertion of the lens implant, additional Provisc was placed in the eye. The eye was rotated inferiorly and the gonioprism was placed on the eye. The trabecular meshwork was easily visualized. The ISTENT inject was opened and 2 ISTENTs were placed approximately 2 clock hours apart at approximately 6 o'clock and 8 o'clock. There was good reflux through the ISTENTs. The I/A unit was used to remove residual viscoelastic. The wound was seen to be watertight under high and low pressure, and no sutures were placed. The intraocular lens was well centered. The pressure was adjusted in the eye to normal pressure. The 4-0 black silk sutures and lid speculum were removed. The eye was shielded after Besivance and Cosopt drops were placed. The patient tolerated the procedure well and was sent to the recovery room in good condition.
[2019-06-03] MEDS ORDERED: LIDOCAINE 1%/PHENYLEPHRINE 1.5% 1 ML VIAL ONE (17:45)
== END 2019-06-03 14:22 | disposition home or self-care (01) ==
LOC: SC 10:04
PROVIDERS: ATTEND Ophthalmology
DX: H25.89 Other age-related cataract (principal); H40.1134 Primary open-angle glaucoma, bilateral, indeterminate stage; H43.813 Vitreous degeneration, bilateral; E11.9 Type 2 diabetes mellitus without complications; Z79.899 Other long term (current) drug therapy; Z79.84 Long term (current) use of oral hypoglycemic drugs; Z88.0 Allergy status to penicillin; Z87.891 Personal history of nicotine dependence
CPT/HCPCS: 0191T; 66984; 140; 82962; C1783; J0171; J2250; J2370; J3010; J3490; V2632

== ENCOUNTER 2019-06-24 08:02 | Day surgery (SDC) | payer MEDICARE, MEDICAID ==
[~2019-06-24 08:02] MED LIST changes: -BUPIVACAINE HCL 0.75% INJ/PF (7.5 MG/1 ML) 10 ML SDV OD PRN; +BUPIVACAINE HCL 0.75% INJ/PF (7.5 MG/1 ML) 10 ML SDV OS PRN; -CHONDR SU A NA/HYALUR INTRAOC KIT (SURGICARE) ONE; -EPINEPHRINE INJ/PF 1 MG/1 ML AMPULE ONE; -KETOROLAC TROMETHAMINE 0.45% 4 DROP/0.4 ML DROPERETTE OD PRN; +KETOROLAC TROMETHAMINE 0.45% 4 DROP/0.4 ML DROPERETTE OS PRN; -LIDOCAINE 1% INJ-PF (10 MG/ML) 30 ML SDV ONE; -LIDOCAINE 4% INJ/PF (40 MG/ML) 5 ML AMPUL OD PRN; +LIDOCAINE 4% INJ/PF (40 MG/ML) 5 ML AMPUL OS PRN; +ONDANSETRON HCL INJ/PF 4 MG/2 ML SDV ONE
[2019-06-24] MEDS ORDERED: FENTANYL CITRATE INJ/PF 100 MCG/2 ML AMPUL ONE (08:03)
[2019-06-24] MEDS ORDERED: MIDAZOLAM 2 MG/2 ML INJ ONE (08:03)
[2019-06-24] MEDS: CYCLOPENTOLATE 0.2%/PHENYLEPHRINE 1% OPH SOLN 2 ML OS PRN ×3 (08:35→08:55)
[2019-06-24] MEDS: TETRACAINE HCL 0.5% OPH SOLN 4 ML OS PRN ×3 (08:35→09:11)
[2019-06-24] MEDS: TROPICAMIDE 1% OPH SOLN 15 ML OS PRN ×3 (08:35→08:55)
[2019-06-24] MEDS: BESIFLOXACIN HCL 0.6% OPH SUSP 5 ML BOTTLE OS PRN ×7 (08:35→09:40)
[2019-06-24] MEDS ORDERED: TRYPAN BLUE 0.06 % OPH SOLN 0.5 ML DISP.SYRIN ONE (09:17)
[2019-06-24] MEDS: EPINEPHRINE INJ/PF 1 MG/1 ML AMPULE ONE ×2 (09:24)
[2019-06-24] MEDS: LIDOCAINE 1% INJ-PF (10 MG/ML) 30 ML SDV ONE ×2 (09:24)
[2019-06-24] MEDS: CHONDR SU A NA/HYALUR INTRAOC KIT (SURGICARE) ONE ×2 (09:24)
[2019-06-24] MEDS: DORZOLAMIDE HCL 2%/TIMOLOL MALEAT 0.5% OPH SOLN 10 ML OS PRN ×5 (09:36→09:40)
--- NOTE | 2019-06-24 12:42 | Operative Report ---
Operative Report-[facility] Operative Report: DATE OF SURGERY: 06/24/2019 PREOPERATIVE DIAGNOSIS: CATARACT, LEFT EYE. POSTOPERATIVE DIAGNOSIS: CATARACT, LEFT EYE. PROCEDURE PERFORMED: PHACOEMULSIFICATION WITH POSTERIOR CHAMBER INTRAOCULAR LENS, LEFT EYE. Intraocular Lens Model : SN 6 0 WF 22.0 Total Phaco Time: 17.28 CDE SURGEON: RAMONA ROCHA MD ANESTHESIA: TOPICAL WITH MAC. INDICATIONS FOR SURGERY: Difficultly watching TV PROCEDURE: The patient was brought to the Operating Room and placed on the operative table. Following tetracaine drops, topical anesthesia was administered. This consisted of instrument wipe pledgets soaked in a solution of 4% Xylocaine mixed with 0.75% Marcaine in a 1:2 ratio. A 2 x 1 cm pledget was placed in the superior fornix. A 1 x 1 cm pledget was placed in the inferior fornix. The eye was patched shut for 5 minutes. The patch was removed. The eye was sterilely prepped and draped in the usual manner. Lid speculum was placed in the eye. The pledgets were removed. 4-0 black silk sutures were placed around the superior and the inferior rectus muscles to be used as traction. A conjunctival peritomy was made at the 10 o'clock position. Hemostasis was obtained with bipolar cautery. A posterior limbal groove was created using a crescent knife and dissected anteriorly towards the cornea. A sharp point blade was used to create a paracentesis site at the 2 o'clock position. 0.2 cc non preserved Lidocaine was injected into the anterior chamber. A 2.4 mm keratome was used to enter the anterior chamber through the groove. Viscoelastic was injected into the anterior chamber. An anterior capsulotomy was performed using Utrata forceps in a capsulorrhexis fashion. Hydrodissection and hydrodelineation were performed. Phacoemulsification was performed in [id number] technique. Following this, the I/A unit was used to remove residual cortex. Viscoelastic was injected into the capsular bag. The Intraocular lens was placed in the capsular bag. The I/A unit was used to remove residual viscoelastic. The wound was seen to be watertight under high and low pressure, and no sutures were placed. The intraocular lens was well centered. The pressure was adjusted in the eye to normal pressure. The 4-0 black silk sutures and lid speculum were removed. The eye was shielded after Besivance and Cosopt drops were placed. The patient tolerated the procedure well and was sent to the Recovery Room in good condition.
== END 2019-06-24 10:27 | disposition home or self-care (01) ==
LOC: SC 08:02
PROVIDERS: ATTEND Ophthalmology
DX: H25.89 Other age-related cataract (principal); Z96.1 Presence of intraocular lens; H40.1134 Primary open-angle glaucoma, bilateral, indeterminate stage; E11.9 Type 2 diabetes mellitus without complications; Z79.84 Long term (current) use of oral hypoglycemic drugs; I25.2 Old myocardial infarction; I10 Essential (primary) hypertension; Z79.899 Other long term (current) drug therapy; F17.210 Nicotine dependence, cigarettes, uncomplicated; Z79.82 Long term (current) use of aspirin
CPT/HCPCS: 82962; 00142; 66984; V2632; J2250; J3490 ×5; A9270; J0171; J3010; J2405; 142

== ENCOUNTER → 2019-09-29 | Outpatient (CLI) | payer MEDICARE, MEDICAID ==
--- NOTE | 2019-09-29 12:57 | RADIOLOGY REPORT (SQ) ---
EXAM DESCRIPTION: CHEST PA/LATERAL COMPLETED DATE/TIME: 09/29/2019 12:34 pm REASON FOR STUDY: PRE-OP COMPARISON: 09/27/2018 EXAM PARAMETERS: NUMBER OF VIEWS: two views TECHNIQUE: Digital Frontal and Lateral radiographic views of the chest acquired. RADIATION DOSE: NA LIMITATIONS: none FINDINGS: LUNGS AND PLEURA: Elevated left hemidiaphragm. No infiltrate, effusion, or mass. MEDIASTINUM AND HILAR STRUCTURES: No masses or contour abnormalities. HEART AND VASCULAR STRUCTURES: Heart normal size. No evidence for failure. BONES: No acute findings. HARDWARE: Sternotomy wires. OTHER: No other significant finding. IMPRESSION: NO SIGNIFICANT RADIOGRAPHIC FINDING IN THE CHEST. TECHNICAL DOCUMENTATION: JOB ID: [id number] [employer]- All Rights Reserved Reading location - IP/workstation name: [email or web address]
[2019-09-29 13:11] LABS: ABSOLUTE EOSINOPHILS # (AUTO) 0.1 10^3/uL (0.0-0.6); ABSOLUTE LYMPHOCYTES (AUTO) 2.7 10^3/uL (0.5-4.7); ABSOLUTE MONOCYTES (AUTO) 0.4 10^3/uL (0.1-1.4); ABSOLUTE NEUT (AUTO) 3.4 10^3/uL (1.7-8.2); BASOPHILS % (AUTO) 0.4 % (0-2); EOSINOPHILS % (AUTO) 2.2 % (0-6); HEMATOCRIT 39.2 % (36.0-47.0); HEMOGLOBIN 12.8 g/dL (12.0-15.5); LYMPHOCYTES % (AUTO) 40.7 % (13-45); MEAN CORPUSCULAR HEMOGLOBIN 27.5 pg (27.0-33.4); MEAN CORPUSCULAR HGB CONC 32.7 g/dL (32.0-36.0); MEAN CORPUSCULAR VOLUME 84 fl (80-97); MONOCYTES % (AUTO) 6.2 % (3-13); PLATELET COUNT 201 10^3/uL (150-450); RED BLOOD COUNT 4.67 10^6/uL (3.72-5.28); RED CELL DISTRIBUTION WIDTH 15.2 % (11.5-14.0); SEGMENTED NEUTROPHILS % (AUTO) 50.5 % (42-78); TOTAL CELLS COUNTED % (AUTO) 100 %; WHITE BLOOD COUNT 6.7 10^3/uL (4.0-10.5)
[2019-09-29 13:29] LABS: ANION GAP 13 (5-19); BLOOD UREA NITROGEN 14 mg/dL (7-20); CALCIUM 10.4 mg/dL (8.4-10.2); CARBON DIOXIDE 26 mmol/L (22-30); CHLORIDE 100 mmol/L (98-107); GLUCOSE 166 mg/dL (75-110); POTASSIUM 4.5 mmol/L (3.6-5.0)
--- NOTE | 2019-09-29 22:13 | EKG REPORT ---
SEVERITY:- NORMAL ECG - SINUS RHYTHM : Confirmed by: James Whatley 29-Sep-2019 22:13:15
== END ==
LOC: OD 11:48
PROVIDERS: ATTEND Orthopaedic Surgery
DX: Z01.810 Encounter for preprocedural cardiovascular examination (principal); Z01.811 Encounter for preprocedural respiratory examination; Z01.812 Encounter for preprocedural laboratory examination; M16.12 Unilateral primary osteoarthritis, left hip; I10 Essential (primary) hypertension; E11.9 Type 2 diabetes mellitus without complications
CPT/HCPCS: 36415; 71046; 80048; 83036; 85025; 93005; 93010

== ENCOUNTER 2019-10-22 06:47 | Inpatient (IN) | payer MEDICARE, MEDICAID ==
[~2019-10-22 06:47] MED LIST changes: -BUPIVACAINE HCL 0.75% INJ/PF (7.5 MG/1 ML) 10 ML SDV OS PRN; +CEFAZOLIN 1 GM/D5W RTU 1 GM/50 ML RTUPB IV PRN; +CLINDAMYCIN 600 MG/D5W RTU 600 MG/50 ML RTUPB IV PRN; +IBUPROFEN 800 MG in NORMAL SALINE 250 ML IV PRN; -KETOROLAC TROMETHAMINE 0.45% 4 DROP/0.4 ML DROPERETTE OS PRN; +LACTATED RINGERS 1000 ML IV PRN; +LIDOCAINE 0.5% INJ-PF (5 MG/ML) 50 ML SDV SUBCUT PRN; -LIDOCAINE 4% INJ/PF (40 MG/ML) 5 ML AMPUL OS PRN; -ONDANSETRON HCL INJ/PF 4 MG/2 ML SDV ONE; +VANCOMYCIN HCL 1,000 MG in DEXTROSE 5%-WATER 250 ML IV PRN
[2019-10-22] MEDS ORDERED: FENTANYL CITRATE INJ/PF 100 MCG/2 ML AMPUL ONE ×2 (06:59→09:04)
[2019-10-22] MEDS ORDERED: PROPOFOL INJ 200 MG/20 ML VIAL IV ONE (07:00)
[2019-10-22] MEDS ORDERED: MIDAZOLAM 2 MG/2 ML INJ ONE (07:00)
[2019-10-22] MEDS ORDERED: OXYCODONE HCL SR 10 MG TABLET PO ONE (07:11)
[2019-10-22] MEDS ORDERED: PANTOPRAZOLE SODIUM 20 MG TABLET.DR PO ONE (07:11)
[2019-10-22] MEDS ORDERED: CEFAZOLIN INJ 1 GM VIAL ONE (07:11)
[2019-10-22] MEDS ORDERED: VANCOMYCIN HCL INJ 1000 MG VIAL ONE (08:28)
[2019-10-22] MEDS ORDERED: TRANEXAMIC ACID INJ/PF 1,000 MG/10 ML SDV ONE ×2 (09:04→12:03)
[2019-10-22] MEDS ORDERED: ONDANSETRON HCL INJ/PF 4 MG/2 ML SDV ONE (09:04)
[2019-10-22] MEDS ORDERED: DEXAMETHASONE SOD PHOSPHATE INJ 4 MG/1 ML VIAL ONE (09:04)
[2019-10-22] MEDS ORDERED: BUPIVACAINE INJ/PF LIPOSOME/PF 266 MG/20 ML SDV ONE (09:06)
[2019-10-22 09:12] LABS: APPEARANCE,URINE CLEAR; BILIRUBIN,URINE NEGATIVE (NEGATIVE); COLOR,URINE YELLOW; GLUCOSE, URINE NEGATIVE (NEGATIVE); KETONES,URINE NEGATIVE (NEGATIVE); LEUKOCYTE ESTERASE,URINE NEGATIVE (NEGATIVE); NITRITE,URINE NEGATIVE (NEGATIVE); PROTEIN,URINE 30 mg/dL (NEGATIVE); URINE SPECIFIC GRAVITY 1.025; UROBILINOGEN,URINE NEGATIVE mg/dL (<2.0)
[2019-10-22] MEDS ORDERED: ONDANSETRON HCL INJ/PF 4 MG/2 ML SDV IV PRN ×2 (09:44→10:33)
[2019-10-22] MEDS ORDERED: OXYCODONE-ACETAMINOPHEN 5-325 MG TABLET PO PRN ×2 (09:44)
[2019-10-22] MEDS ORDERED: FENTANYL CITRATE INJ/PF 100 MCG/2 ML AMPUL IV PRN ×3 (09:44)
[2019-10-22] MEDS ORDERED: MORPHINE SULFATE 10 MG/ML INJ IV PRN (09:44)
[2019-10-22] MEDS ORDERED: MEPERIDINE HCL/PF INJ 25 MG/1 ML DISP.SYRIN IV PRN (09:44)
[2019-10-22] MEDS ORDERED: DIPHENHYDRAMINE HCL 50 MG/ML VIAL IV PRN ×2 (09:44→10:33)
[2019-10-22] MEDS ORDERED: ACETAMINOPHEN 325 MG TABLET PO PRN (10:33)
[2019-10-22] MEDS ORDERED: ZOLPIDEM TARTRATE 5 MG TABLET PO PRN (10:33)
[2019-10-22] MEDS ORDERED: RINGERS SOLUTION,LACTATED 1,000 ML IV PRN (10:33)
[2019-10-22] MEDS ORDERED: ONDANSETRON 4 MG TAB.RAPDIS PO PRN (10:33)
[2019-10-22] MEDS ORDERED: MAG HYDROX/AL HYDROX/SIMETH SUSP 30 ML UDCUP PO PRN (10:33)
[2019-10-22] MEDS ORDERED: OXYCODONE HCL IR 5 MG TABLET PO PRN (10:33)
--- NOTE | 2019-10-22 10:42 | Operative Report ---
Operative Report DATE OF SURGERY: 10/22/19 PREOPERATIVE DIAGNOSIS: Mechanical failure left hip arthroplasty OPERATION: Left hip revision arthroplasty SURGEON: MOI HUBBARD ANESTHESIA: GA TISSUE REMOVED OR ALTERED: Cultures x2 to microbiology. Implants to CSS ESTIMATED BLOOD LOSS: 75 INTRAOPERATIVE FINDINGS: Fragmented polyethylene liner PROCEDURE: Implants used: Regina Duraloc liner 36 mm, plus 4 lateralization, 54 shell 36 mm chrome cobalt head +5 neck With the patient in a right lateral decubitus position on the operating table the left lower extremity hindquarter prepped and draped in sterile fashion. A 6 inch incision is made in line with the previous surgical approach to the hip and a posterior approach the hip was taken. Upon entering the hip capsule swabs were sent as well as soft tissue for culture and sensitivity. The hip is dislocated and the femoral head disimpacted from the trunnion. The femoral stem is retracted anteriorly. Soft tissue is cleared off the rim of the acetabulum. Is clear that in the superior posterior quadrant there is complete failure of the polyethylene liner with fragmentation of poly-ethylene within the joint. The existing liner is removed piecemeal. The underlying acetabular shell is cleared of soft tissue and is parent that the locking ring is intact. A trial liner fitting in the existing 54 mm shell excepting a 36 mm chrome cobalt head with +4 lateralization is placed into the shell and a trial reduction was performed with 36 mm +5 neck. This re-creates preoperative leg length and provides excellent anterior posterior stability. The wound was ruperto here with pulse lavage containing Betadine. The above liner is impacted into the shell and is secure to manual testing. The above head is impacted onto the trunnion. The hip is reduced. It is again irrigated with pulse lavage and then closure was interrupted Vicryl followed by randell. A sterile compressive dressing was applied and the patient is returned to the PACU in satisfactory condition.
[2019-10-22] MEDS ORDERED: SUCCINYLCHOLINE CHLORIDE INJ 200 MG/10 ML VIAL ONE (10:44)
[2019-10-22] MEDS ORDERED: DEXTROSE 50%-WATER SYRINGE 25 GM/50 ML DOSE IV PRN (11:00)
[2019-10-22] MEDS ORDERED: DEXTROSE 50%-WATER SYRINGE 12.5 GM/25 ML DOSE IV PRN (11:00)
[2019-10-22] MEDS ORDERED: DEXTROSE 40% GEL 15 GM TUBE X 2 PO PRN (11:00)
[2019-10-22] MEDS ORDERED: GLUCAGON,HUMAN RECOMB 1 MG INJ IM PRN (11:00)
[2019-10-22] MEDS ORDERED: DEXTROSE 40% GEL 15 GM TUBE PO PRN (11:00)
--- NOTE | 2019-10-22 11:56 | RADIOLOGY REPORT (SQ) ---
EXAM DESCRIPTION: PELVIS AP COMPLETED DATE/TIME: 10/22/2019 11:27 am REASON FOR STUDY: Post Op Long Cassette in PACU M25.552 PAIN IN LEFT HIP COMPARISON: 10/14/2018 NUMBER OF VIEWS: One view TECHNIQUE: Digital radiographic images of the pelvis post-procedure LIMITATIONS: None. FINDINGS: BONES: No worrisome or unexpected findings post-procedure. DEVICE: There are bilateral total hip arthroplasties. Cerclage wire fixation about the proximal righ t femur. Distal stem of the right components excluded by collimation. SOFT TISSUES: Expected postoperative soft tissue changes at the left hip. IMPRESSION: Postoperative changes of the left hip total arthroplasty without evidence of immediate c omplication. Unchanged right total hip arthroplasty with distal tip excluded by collimation. TECHNICAL DOCUMENTATION: JOB ID: [id number] [employer]- All Rights Reserved Reading location - IP/workstation name: [email or web address]
[2019-10-22] MEDS ORDERED: TRANEXAMIC ACID INJ/PF 1,000 MG/10 ML SDV IV ONE (12:30)
[2019-10-22] MEDS: INSULIN LISPRO 100 UNIT/ML 3 ML VIAL SUBCUT SCH ×3 (14:32→21:19)
[2019-10-22] MEDS ORDERED: (PENDING PHARMACY ID) (Metformin Hcl [Metformin Hcl] 1,000 MG) PO SCH (18:00)
[2019-10-22] MEDS: METFORMIN HCL 500 MG TABLET PO SCH (18:31)
[2019-10-22] MEDS: SENNOSIDES/DOCUSATE 8.6-50 MG 1 EACH TABLET PO SCH (18:31)
[2019-10-22] MEDS: IBUPROFEN 800 MG in NORMAL SALINE 250 ML IV SCH ×2 (18:31→21:18)
[2019-10-22] MEDS: METOPROLOL SUCCINATE 50 MG TAB.SR.24H PO SCH (21:19)
[2019-10-22] MEDS: OXYCODONE HCL SR 10 MG TABLET PO SCH (21:19)
[2019-10-22] MEDS ORDERED: (PENDING PHARMACY ID) (Bimatoprost [Lumigan 0.01% Oph Soln 2.5 Ml/Bottle] 1 DROP) OU SCH (22:00)
[2019-10-22] MEDS ORDERED: VANCOMYCIN HCL 1,000 MG in DEXTROSE 5%-WATER 250 ML IV ONE (22:30)
[2019-10-23] MEDS: IBUPROFEN 800 MG in NORMAL SALINE 250 ML IV SCH (05:38)
[2019-10-23 06:00] LABS: HEMATOCRIT 30.3 % (36.0-47.0); HEMOGLOBIN 9.9 g/dL (12.0-15.5); MEAN CORPUSCULAR HEMOGLOBIN 27.4 pg (27.0-33.4); MEAN CORPUSCULAR HGB CONC 32.8 g/dL (32.0-36.0); MEAN CORPUSCULAR VOLUME 84 fl (80-97); PLATELET COUNT 136 10^3/uL (150-450); RED BLOOD COUNT 3.63 10^6/uL (3.72-5.28); RED CELL DISTRIBUTION WIDTH 14.9 % (11.5-14.0); WHITE BLOOD COUNT 13.2 10^3/uL (4.0-10.5)
[2019-10-23] MEDS ORDERED: PANTOPRAZOLE SODIUM 40 MG TABLET.DR PO SCH (06:00)
[2019-10-23 06:12] LABS: ANION GAP 9 (5-19); BLOOD UREA NITROGEN 12 mg/dL (7-20); CALCIUM 9.6 mg/dL (8.4-10.2); CARBON DIOXIDE 26 mmol/L (22-30); CHLORIDE 104 mmol/L (98-107); GLUCOSE 135 mg/dL (75-110); POTASSIUM 5.3 mmol/L (3.6-5.0)
--- NOTE | 2019-10-23 06:38 | PDOC DISCHARGE SUMMARY ---
Impression - Admit/DC Date/PCP Admission Date/Primary Care Provider: 10/22/19 06:47 YORDY PISANO MD Discharge Date: 10/23/19 - Discharge Diagnosis (1) Post-osseointegration mechanical failure of implant Is this a current diagnosis for this admission?: Yes - Additional Information Resuscitation Status: Full Code Discharge Diet: Regular Discharge Activity: Balance Activity w/Rest, No tub bath Referrals: YORDY PISANO MD [Primary Care Provider] - Home Medications: Atorvastatin Calcium [Lipitor 40 mg Tablet] 40 mg PO QHS 10/10/18 Bimatoprost [Lumigan 0.01% Oph Soln 2.5 ml/Bottle] 1 drop OU QHS 10/10/18 Lisinopril [Prinivil 40 mg Tablet] 40 mg PO DAILY 10/10/18 Metformin HCl 1,000 mg PO DAILY 10/10/18 Metoprolol Succinate [Toprol Xl] 50 mg PO BID 10/10/18 Sitagliptin Phosphate [Januvia] 100 mg PO DAILY 10/10/18 Tramadol HCl [Ultram] 50 mg PO Q8HP PRN 10/10/18 Venlafaxine HCl [Venlafaxine HCl ER] 150 mg PO DAILY 10/14/18 Aspirin [Aspirin 325 mg Tablet] 325 mg PO DAILY 05/27/19 Bromfenac Sodium [Prolensa] 1 drop OU QHS 05/27/19 Difluprednate [Durezol] 1 drop OU DAILY 05/27/19 Moxifloxacin HCl [Moxifloxacin] 1 drop OU DAILY 05/27/19 History of Present Illiness History of Present Illness: MALIK DOE is a 78 year old female Patient is a 78-year-old black female status post left hip arthroplasty in the distant past with 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 Patient is admitted for elective revision hip arthroplasty. Hospital Course Hospital Course: Patient is admitted through the operating where she undergoes an uncomplicated left hip revision arthroplasty. She was returned to floor in satisfactory condition. She makes excellent progress with physical therapy ambulating 200 feet. Physical Exam Vital Signs: Temp Pulse Resp BP Pulse Ox 36.6 C 64 16 107/53 L 97 10/22/19 23:27 10/22/19 23:27 10/22/19 23:27 10/22/19 23:27 10/22/19 23:27 Intake & Output 10/21/19 10/22/19 10/23/19 06:59 06:59 06:59 Intake Total 6133 Output Total 4220 Balance 1913 Weight 80.2 kg General appearance: PRESENT: no acute distress Head exam: PRESENT: normocephalic Respiratory exam: PRESENT: unlabored Cardiovascular exam: PRESENT: RRR Pulses: PRESENT: +1 pedal pulses bilateral Vascular exam: PRESENT: normal capillary refill GI/Abdominal exam: PRESENT: soft Rectal exam: PRESENT: deferred Musculoskeletal exam: PRESENT: other - Left hip dressing with a small amount of dried blood in the central portion of this. Otherwise it is clean dry and intact. Leg lengths are equal. Distal neurovascular examination is intact. Neurological exam: PRESENT: alert, awake, oriented to person, oriented to place, oriented to time, oriented to situation. ABSENT: motor sensory deficit Psychiatric exam: PRESENT: appropriate affect, normal mood. ABSENT: homicidal ideation, suicidal ideation Skin exam: PRESENT: dry, intact, warm. ABSENT: cyanosis, rash Results Laboratory Results: WBC 13.2 10^3/uL (4.0-10.5) H 10/23/19 05:21 RBC 3.63 10^6/uL (3.72-5.28) L 10/23/19 05:21 Hgb 9.9 g/dL (12.0-15.5) L 10/23/19 05:21 Hct 30.3 % (36.0-47.0) L 10/23/19 05:21 MCV 84 fl (80-97) 10/23/19 05:21 MCH 27.4 pg (27.0-33.4) 10/23/19 05:21 MCHC 32.8 g/dL (32.0-36.0) 10/23/19 05:21 RDW 14.9 % (11.5-14.0) H 10/23/19 05:21 Plt Count 136 10^3/uL (150-450) L 10/23/19 05:21 Sodium 138.5 mmol/L (137-145) 10/23/19 05:21 Potassium 5.3 mmol/L (3.6-5.0) H 10/23/19 05:21 Chloride 104 mmol/L (98-107) 10/23/19 05:21 Carbon Dioxide 26 mmol/L (22-30) 10/23/19 05:21 Anion Gap 9 (5-19) 10/23/19 05:21 BUN 12 mg/dL (7-20) 10/23/19 05:21 Creatinine 0.78 mg/dL (0.52-1.25) 10/23/19 05:21 Est GFR ( Amer) > 60 (>60) 10/23/19 05:21 Est GFR (MDRD) Non-Af > 60 (>60) 10/23/19 05:21 Glucose 135 mg/dL (75-110) H 10/23/19 05:21 POC Glucose 147 mg/dL (70-110) H 10/23/19 06:27 Calcium 9.6 mg/dL (8.4-10.2) 10/23/19 05:21 Urine Color YELLOW 10/22/19 07:00 Urine Appearance CLEAR 10/22/19 07:00 Urine pH 6.0 (5.0-9.0) 10/22/19 07:00 Ur Specific [place] 1.025 10/22/19 07:00 Urine Protein 30 mg/dL (NEGATIVE) H 10/22/19 07:00 Urine Glucose (UA) NEGATIVE mg/dL (NEGATIVE) 10/22/19 07:00 Urine Ketones NEGATIVE mg/dL (NEGATIVE) 10/22/19 07:00 Urine Blood NEGATIVE (NEGATIVE) 10/22/19 07:00 Urine Nitrite NEGATIVE (NEGATIVE) 10/22/19 07:00 Urine Bilirubin NEGATIVE (NEGATIVE) 10/22/19 07:00 Urine Urobilinogen NEGATIVE mg/dL (<2.0) 10/22/19 07:00 Ur Leukocyte Esterase NEGATIVE (NEGATIVE) 10/22/19 07:00 Urine WBC (Auto) 1 /HPF 10/22/19 07:00 Urine RBC (Auto) 2 /HPF 10/22/19 07:00 Squamous Epi Cells Auto 3 /HPF 10/22/19 07:00 Urine Mucus (Auto) MANY /LPF 10/22/19 07:00 Urine Ascorbic Acid NEGATIVE (NEGATIVE) 10/22/19 07:00 Blood Type O POSITIVE 10/22/19 07:27 Antibody Screen NEGATIVE 10/22/19 07:27 Impressions: Pelvis X-Ray 10/22/19 10:35 IMPRESSION: Postoperative changes of the left hip total arthroplasty without evidence of immediate complication. Unchanged right total hip arthroplasty with distal tip excluded by collimation. Plan Plan of Treatment: Patient be discharged home on a weightbearing as tolerated ambulatory basis. Social work to arrange for home health services and DME. Follow-up with Dr. Quinones and [facility] surgery in 2 weeks for wound check. Time Spent: Less than 30 Minutes Stroke Is this a Stroke Patient?: No Stroke Pt being discharged on Anti-thrombolytic therapy?: Yes Acute Heart Failure - Is this a Heart Failure Patient?: No
[2019-10-23] MEDS: INSULIN LISPRO 100 UNIT/ML 3 ML VIAL SUBCUT SCH (07:34)
[2019-10-23] MEDS: METFORMIN HCL 500 MG TABLET PO SCH (09:33)
[2019-10-23] MEDS: OXYCODONE HCL SR 10 MG TABLET PO SCH (09:33)
[2019-10-23] MEDS: SENNOSIDES/DOCUSATE 8.6-50 MG 1 EACH TABLET PO SCH (09:34)
[2019-10-23] MEDS: METOPROLOL SUCCINATE 50 MG TAB.SR.24H PO SCH (09:34)
[2019-10-23] MEDS ORDERED: SITAGLIPTIN PHOSPHATE 50 MG TABLET PO SCH (10:00)
[2019-10-23] MEDS ORDERED: PRENATAL VITAMIN W DHA CAPSULE PO SCH (10:00)
[2019-10-23] MEDS ORDERED: ASPIRIN 325 MG TABLET PO SCH (10:00)
[2019-10-23] MEDS ORDERED: VENLAFAXINE HCL 75 MG CAP.SR.24H PO SCH (10:00)
[2019-10-23] MEDS ORDERED: ATORVASTATIN CALCIUM 40 MG TABLET PO SCH (10:00)
[2019-10-23] MEDS ORDERED: LISINOPRIL 10 MG TABLET PO SCH (10:00)
[2019-10-23 11:08] VITALS: BP 105/64
[2019-10-24] MEDS ORDERED: BUPIVACAINE INJ/PF LIPOSOME/PF 266 MG/20 ML SDV INJ PRN (05:00)
[2019-10-24] MEDS ORDERED: PANTOPRAZOLE SODIUM 20 MG TABLET.DR PO PRN (05:00)
[2019-10-24] MEDS ORDERED: OXYCODONE HCL SR 10 MG TABLET PO PRN (05:00)
== END 2019-10-23 11:25 | disposition home health service (06) | DRG 468 ==
LOC: INOR 06:47 → 4S 14:05
PROVIDERS: ADMIT Orthopaedic Surgery; ATTEND Orthopaedic Surgery
PROC: 0SPB0JZ Removal of Synthetic Substitute from Left Hip Joint, Open Approach (ICD-10-PCS; 2019-10-22)
PROC: 0SRB02Z Replacement of Left Hip Joint with Metal on Polyethylene Synthetic Substitute, Open Approach (ICD-10-PCS; principal; 2019-10-22 09:00)
DX: T84.091A Other mechanical complication of internal left hip prosthesis, initial encounter (principal); Z96.642 Presence of left artificial hip joint; H40.9 Unspecified glaucoma; I25.2 Old myocardial infarction; E11.9 Type 2 diabetes mellitus without complications; E78.00 Pure hypercholesterolemia, unspecified; Y83.8 Other surgical procedures as the cause of abnormal reaction of the patient, or of later complication, without mention of misadventure at the time of the procedure; Z79.84 Long term (current) use of oral hypoglycemic drugs; Z79.899 Other long term (current) drug therapy
CPT/HCPCS: 01215; 36415; 72170; 80048; 81001; 82947; 82962; 85027; 86850; 86900; 86901; 87070; 87075; 87205; 94799; C9290; J0330; J0690; J1100; J1741; J1815; J2250; J2405; J2704; J3010; J3370; J3490; J7050; J7060